=== PATIENT | male | born 1965 | race Two or more races ===

== ENCOUNTER → 2019-08-09 | Outpatient (CLI) | payer BC ==
--- NOTE | 2019-08-09 15:51 | RAD ---
CT ABDOMEN PELVIS WO CONTRAST Indication: Right groin pain. Exposure: One or more of the following individualized dose reduction techniques were utilized for this examination: 1. Automated exposure control 2. Adjustment of the mA and/or kV according to patient size 3. Use of iterative reconstruction technique. Comparison: None are available. Technique: No intravenous contrast given. No oral contrast per request. Findings: Evaluation of solid viscera, bowel and vasculature is compromised by the noncontrast technique. Lung bases are clear. Liver appears unremarkable. Spleen not enlarged. Pancreas appears unremarkable. No evidence of adrenal mass. Low-density lesion at the upper pole of the right kidney measures 15 mm diameter and 11 Hounsfield units, most likely a cyst. No evidence of hydronephrosis or renal calculus. No calcified gallstone or gallbladder distention. Aorta is nonaneurysmal. No significant pathologic lymph node enlargement. The stomach is not distended. No significant distention of small bowel. Mild colonic diverticulosis. No evidence of acute colitis or acute diverticulitis. The appendix appears within normal limits. No evidence of ascites. No evidence of pneumoperitoneum. Urinary bladder appears unremarkable. No evidence of hernia or acute abnormality in the region of the right groin. Vertebral body height and alignment are intact. IMPRESSION: 1. No acute findings in the abdomen or pelvis. 2. Small right renal lesion, most likely a cyst. Electronically signed by: Torrey Juares MD (08/09/2019 3:47 PM) [id number]
== END | disposition home or self-care (01) ==
LOC: CT 12:48
PROVIDERS: ATTEND Physician Assistant Medical
DX: K57.30 Diverticulosis of large intestine without perforation or abscess without bleeding (principal); N28.89 Other specified disorders of kidney and ureter
CPT/HCPCS: 74176